=== PATIENT | male | born 1990 | race Caucasian/White ===

== ENCOUNTER 2021-08-07 04:34 | Emergency (ER) | payer OTHER ==
[2021-08-07 04:52] VITALS: BP 148/78; PULSE 89; TEMP 98.1; BMI 30.4
[2021-08-07] MEDS ORDERED: IBUPROFEN 400 MG TABLET (FP) PO ONE ×2 (05:05→05:28)
[2021-08-07] MEDS ORDERED: DIPHTH,PERTUSS(ACELL),TET 0.5 ML DISP.SYRIN IM ONE ×2 (05:05→05:29)
[2021-08-07] MEDS ORDERED: ACETAMINOPHEN 325 MG TABLET (FP) PO ONE (05:05)
[2021-08-07] MEDS ORDERED: ACETAMINOPHEN 325 MG TABLET (FP) ONE (05:28)
[2021-08-07] MEDS ORDERED: LIDOCAINE 1%/EPI 1:100000 (20 ML MULTI DOSE VIAL) IJ ONE (05:43)
[2021-08-07] MEDS ORDERED: LIDOCAINE 1%/EPI 1:100000 (20 ML MULTI DOSE VIAL) ONE (05:45)
== END 2021-08-07 07:32 | disposition home or self-care (01) ==
LOC: JER 04:34
PROC: 0HQJXZZ Repair Left Upper Leg Skin, External Approach (ICD-10-PCS; principal; 2021-08-07)
PROC: 3E0234Z Introduction of Serum, Toxoid and Vaccine into Muscle, Percutaneous Approach (ICD-10-PCS; 2021-08-07)
DX: S71.112A Laceration without foreign body, left thigh, initial encounter (principal); W26.8XXA Contact with other sharp object(s), not elsewhere classified, initial encounter
CPT/HCPCS: 73560-TC-LT-FY; 90715; 99283-25

== ENCOUNTER 2021-08-16 11:32 | Emergency (ER) | payer OTHER ==
[2021-08-16 11:38] VITALS: BP 139/79; PULSE 78; TEMP 98.2; BMI 30.4
== END 2021-08-16 11:59 | disposition home or self-care (01) ==
LOC: FER 11:32
DX: S81.812A Laceration without foreign body, left lower leg, initial encounter (principal); W25.XXXA Contact with sharp glass, initial encounter; Z48.02 Encounter for removal of sutures
CPT/HCPCS: 99281-25